=== PATIENT | female | born 1975 | race Caucasian/White ===

== ENCOUNTER → 2017-09-11 | Outpatient (CLI) | payer OTHER ==
--- NOTE | 2017-09-14 10:19 | MM ---
Reason for exam: screening (asymptomatic). Last mammogram was performed 3 years and 6 months ago. History: Took hormonal contraceptives for 18 years beginning at age 14. Physical Findings: A clinical breast exam by your physician is recommended on an annual basis and results should be correlated with mammographic findings. MG Screening Mammo w CAD Bilateral CC and MLO view(s) were taken. Prior study comparison: March 25, 2014, mammogram, performed at [facility]. The breast tissue is heterogeneously dense. This may lower the sensitivity of mammography. Stable intramammary lymph node upper outer quadrant right breast. No significant changes when compared with prior studies. ASSESSMENT: Benign, BI-RAD 2 RECOMMENDATION: Routine screening mammogram of both breasts in 1 year.
== END | disposition home or self-care (01) ==
LOC: RADMAMWWP 09:19
PROVIDERS: ATTEND Family Medicine
DX: Z12.31 Encounter for screening mammogram for malignant neoplasm of breast (principal)
CPT/HCPCS: 77067

== ENCOUNTER → 2019-07-22 | Outpatient (CLI) | payer OTHER ==
--- NOTE | 2019-07-23 10:04 | MM ---
Reason for exam: screening (asymptomatic). Last mammogram was performed 1 year and 10 months ago. History: Took hormonal contraceptives for 18 years beginning at age 14. Physical Findings: A clinical breast exam by your physician is recommended on an annual basis and results should be correlated with mammographic findings. MG Screening Mammo w CAD Bilateral CC and MLO view(s) were taken. Prior study comparison: September 11, 2017, bilateral MG screening mammo w CAD. March 25, 2014, mammogram, performed at [facility]. There are scattered fibroglandular densities. No suspicious abnormality. No significant changes when compared with prior studies. ASSESSMENT: Negative, BI-RAD 1 RECOMMENDATION: Routine screening mammogram of both breasts in 1 year.
== END | disposition home or self-care (01) ==
LOC: RADMAMWWP 12:41
PROVIDERS: ATTEND Physician Assistant Medical
DX: Z12.31 Encounter for screening mammogram for malignant neoplasm of breast (principal)
CPT/HCPCS: 77067

== ENCOUNTER 2020-10-01 16:48 | Observation (INO) | payer OTHER ==
[2020-10-01] MEDS ORDERED: NITROGLYCERIN OINT 1 INCH/GM PACKET TOPICAL STA (17:07)
[2020-10-01] MEDS ORDERED: ASPIRIN 81 MG PO STA (17:07)
--- NOTE | 2020-10-01 17:16 | ED ---
General Adult HPI - General Chief complaint: Recheck/Abnormal Lab/Rx Stated complaint: sent her for heavy chest pressure. Time Seen by Provider: 10/01/20 17:00 Source: patient, RN notes reviewed Mode of arrival: wheelchair Limitations: no limitations - History of Present Illness Initial comments: Patient is a pleasant 45-year-old female presenting to the emergency Department with complaints of chest discomfort. Symptoms have been occurring for months. Patient has pressure in her chest. Symptoms do somewhat increased with deep breaths. Otherwise no dyspnea. No nausea. No diaphoresis. Patient has not noticed worsening symptoms with exertion. Patient did go to her doctor today and was told abnormal EKG and advised come to emergency department. Patient does not have a copy of her EKG. Symptoms have been intermittent, more persistent today. Discomfort is currently rated 2/10. No radiation. - Related Data Home Medications Medication Instructions Recorded Confirmed [id number] [id number] 1 - 2 tab PO Q4HR PRN 10/01/20 10/01/20 [Excedrin] Allergies Allergy/AdvReac Type Severity Reaction Status Date / Time No Known Allergies Allergy Verified 10/01/20 17:28 Review of Systems ROS Statement: Those systems with pertinent positive or pertinent negative responses have been documented in the HPI. ROS Other: All systems not noted in ROS Statement are negative. Constitutional: Denies: fever Eyes: Denies: eye pain ENT: Denies: ear pain Respiratory: Denies: cough, dyspnea Cardiovascular: Reports: chest pain Endocrine: Denies: fatigue Gastrointestinal: Denies: abdominal pain Genitourinary: Denies: dysuria Musculoskeletal: Denies: back pain Skin: Denies: rash Neurological: Denies: weakness Past Medical History Past Medical History: No Reported History History of Any Multi-Drug Resistant Organisms: None Reported Additional Past Surgical History / Comment(s): carpal tunnel, liposuction Past Psychological History: No Psychological Hx Reported Smoking Status: Never smoker Past Alcohol Use History: Occasional Past Drug Use History: None Reported General Exam Limitations: no limitations General appearance: alert, in no apparent distress Head exam: Present: normocephalic Eye exam: Present: normal appearance Neck exam: Present: normal inspection Respiratory exam: Present: normal lung sounds bilaterally. Absent: chest wall tenderness Cardiovascular Exam: Present: regular rate, normal rhythm, normal heart sounds Expanded Peripheral pulses: 2+: Radial (R), Radial (L), Dorsalis Pedis (R), Dorsalis Pedis (L) GI/Abdominal exam: Present: soft. Absent: tenderness Extremities exam: Present: normal inspection. Absent: pedal edema, calf ten derness Neurological exam: Present: alert Psychiatric exam: Present: normal affect, normal mood Skin exam: Present: normal color Course Vital Signs 10/01/20 10/01/20 10/01/20 16:50 17:27 19:31 Temperature 97.7 F 98.2 F Pulse Rate 87 83 80 Respiratory 18 18 18 Rate Blood Pressure 171/107 151/109 133/84 O2 Sat by Pulse 96 97 96 Oximetry EKG Findings - EKG Comments: EKG Findings:: Normal sinus rhythm with a rate of 88. TX 148. QRS 92. QT 376. QTc 454. Normal axis. Normal QRS. No acute ST change. Medical Decision Making - Medical Decision Making Patient reevaluated and updated. Case was discussed in detail with Dr. Grider, covering for hospital call, who will admit. - Lab Data Result diagrams: 10/01/20 17:47 10/01/20 17:47 Lab Results 10/01/20 10/01/20 10/01/20 Range/Units 17:47 17:47 17:47 WBC 9.5 (3.8-10.6) k/uL RBC 5.10 (3.80-5.40) m/uL Hgb 14.6 (11.4-16.0) gm/dL Hct 41.4 (34.0-46.0) % MCV 81.2 (80.0-100.0) fL MCH 28.7 (25.0-35.0) pg MCHC 35.3 (31.0-37.0) g/dL RDW 12.4 (11.5-15.5) % Plt Count 287 (150-450) k/uL MPV 7.3 Neutrophils % 63 % Lymphocytes % 28 % Monocytes % 5 % Eosinophils % 3 % Basophils % 0 % Neutrophils # 6.0 (1.3-7.7) k/uL Lymphocytes # 2.6 (1.0-4.8) k/uL Monocytes # 0.5 (0-1.0) k/uL Eosinophils # 0.2 (0-0.7) k/uL Basophils # 0.0 (0-0.2) k/uL PT 9.9 (9.0-12.0) sec INR 0.9 (<1.2) APTT 22.0 (22.0-30.0) sec D-Dimer 0.51 (<0.60) mg/L FEU Sodium 137 (137-145) mmol/L Potassium 3.7 (3.5-5.1) mmol/L Chloride 107 (98-107) mmol/L Carbon Dioxide 23 (22-30) mmol/L Anion Gap 7 mmol/L BUN 12 (7-17) mg/dL Creatinine 0.75 (0.52-1.04) mg/dL Est GFR (CKD-EPI)AfAm >90 (>60 ml/min/1.73 sqM) Est GFR (CKD-EPI)NonAf >90 (>60 ml/min/1.73 sqM) Glucose 94 (74-99) mg/dL Calcium 9.4 (8.4-10.2) mg/dL Magnesium 1.7 (1.6-2.3) mg/dL Total Bilirubin 0.2 (0.2-1.3) mg/dL AST 18 (14-36) U/L ALT 11 (4-34) U/L Alkaline Phosphatase 59 (38-126) U/L Troponin I (0.000-0.034) ng/mL Total Protein 6.6 (6.3-8.2) g/dL Albumin 3.8 (3.5-5.0) g/dL 10/01/20 Range/Units 17:47 WBC (3.8-10.6) k/uL RBC (3.80-5.40) m/uL Hgb (11.4-16.0) gm/dL Hct (34.0-46.0) % MCV (80.0-100.0) fL MCH (25.0-35.0) pg MCHC (31.0-37.0) g/dL RDW (11.5-15.5) % Plt Count (150-450) k/uL MPV Neutrophils % % Lymphocytes % % Monocytes % % Eosinophils % % Basophils % % Neutrophils # (1.3-7.7) k/uL Lymphocytes # (1.0-4.8) k/uL Monocytes # (0-1.0) k/uL Eosinophils # (0-0.7) k/uL Basophils # (0-0.2) k/uL PT (9.0-12.0) sec INR (<1.2) APTT (22.0-30.0) sec D-Dimer (<0.60) mg/L FEU Sodium (137-145) mmol/L Potassium (3.5-5.1) mmol/L Chloride (98-107) mmol/L Carbon Dioxide (22-30) mmol/L Anion Gap mmol/L BUN (7-17) mg/dL Creatinine (0.52-1.04) mg/dL Est GFR (CKD-EPI)AfAm (>60 ml/min/1.73 sqM) Est GFR (CKD-EPI)NonAf (>60 ml/min/1.73 sqM) Glucose (74-99) mg/dL Calcium (8.4-10.2) mg/dL Magnesium (1.6-2.3) mg/dL Total Bilirubin (0.2-1.3) mg/dL AST (14-36) U/L ALT (4-34) U/L Alkaline Phosphatase (38-126) U/L Troponin I <0.012 (0.000-0.034) ng/mL Total Protein (6.3-8.2) g/dL Albumin (3.5-5.0) g/dL - Radiology Data Radiology results: image reviewed (Chest x-ray reveals no acute process) Disposition Clinical Impression: Chest pain Disposition: ADMITTED IP TO THIS HOSP Is patient prescribed a controlled substance at d/c from ED?: No Referrals: Cassy Shepard, PAC [Primary Care Provider] - 1-2 days Decision Time: 19:33
[2020-10-01 18:13] LABS: Basophils % (A) 0 %; Eosinophils # (A) 0.2 k/uL (0-0.7); Eosinophils % (A) 3 %; HCT 41.4 % (34.0-46.0); HGB 14.6 gm/dL (11.4-16.0); Lymphocytes # (A) 2.6 k/uL (1.0-4.8); Lymphocytes % (A) 28 %; MCH 28.7 pg (25.0-35.0); MCHC 35.3 g/dL (31.0-37.0); MCV 81.2 fL (80.0-100.0); Mean Platelet Volume 7.3; Monocytes # (A) 0.5 k/uL (0-1.0); Monocytes % (A) 5 %; Neutrophils % (A) 63 %; Platelet Count 287 k/uL (150-450); RDW 12.4 % (11.5-15.5); WBC 9.5 k/uL (3.8-10.6)
--- NOTE | 2020-10-01 18:23 | XR ---
EXAMINATION TYPE: XR chest 2V DATE OF EXAM: 10/01/2020 COMPARISON: NONE HISTORY: Chest pressure TECHNIQUE: FINDINGS: Heart and mediastinum are normal. Lungs are clear. Diaphragm is normal. There are chest shalom ds. Bony thorax is intact. IMPRESSION: Normal chest.
[2020-10-01 18:28] LABS: D-Dimer 0.51 mg/L FEU (<0.60); INR 0.9 (<1.2); Prothrombin Time 9.9 sec (9.0-12.0)
[2020-10-01 18:32] LABS: ALT 11 U/L (4-34); AST 18 U/L (14-36); African American GFR (CKD) >90 (>60 ml/min/1.73 sqM); Albumin 3.8 g/dL (3.5-5.0); Alkaline Phosphatase 59 U/L (38-126); Anion Gap 7 mmol/L; Blood Urea Nitrogen 12 mg/dL (7-17); Calcium 9.4 mg/dL (8.4-10.2); Carbon Dioxide 23 mmol/L (22-30); Chloride 107 mmol/L (98-107); Glucose 94 mg/dL (74-99); Magnesium 1.7 mg/dL (1.6-2.3); Non-African American GFR(CKD) >90 (>60 ml/min/1.73 sqM); Potassium 3.7 mmol/L (3.5-5.1); Sodium 137 mmol/L (137-145); Total Bilirubin 0.2 mg/dL (0.2-1.3); Total Protein 6.6 g/dL (6.3-8.2)
[2020-10-01] MEDS ORDERED: NITROGLYCERIN SL TABS 0.4 MG TAB SUBLINGUAL PRN (19:34)
[2020-10-01] MEDS: ACETAMINOPHEN TAB 325 MG TAB PO PRN (22:06)
[2020-10-01] MEDS: NITROGLYCERIN OINT 1 INCH/GM PACKET TOPICAL SCH (23:33)
[2020-10-02 02:15] VITALS: RESP 18
--- NOTE | 2020-10-02 03:16 | P.HPIM ---
History of Present Illness H&P Date: 10/01/20 Chief Complaint: chest pain 45 year old female with no significant past medical history Patient comes in today for evaluation of abnormal EKG and chest pain she was sent in from her primary care physician office. She reports that she's been experiencing off-and-on chest pain for the past month not related to activity. She works in the post office. She denies any unusual physical activity recently denies any trauma. Today she went to her doctor's office for evaluation was found to have abnormal EKG for which she was sent in here upon arrival she was reporting some chest discomfort is nonradiating central chest discomfort increased with taking deep breath and coughing. Not associated with activity. Denies any associated nausea vomiting diaphoresis palpitation or shortness of breath. She described the pain as pressure about 5 out of 10 in severity In the ED blood work was unremarkable, troponin negative, vital signs stable, EKG in the ED was normal sinus rhythm, chest x-ray was unremarkable Patient denies any smoking, history of premature CAD, denies any drug abuse or alcohol abuse Review of Systems Pertinent positives as noted in HPI. All other systems were reviewed and are negative Past Medical History Past Medical History: No Reported History History of Any Multi-Drug Resistant Organisms: None Reported Additional Past Surgical History / Comment(s): carpal tunnel, liposuction Past Psychological History: No Psychological Hx Reported Smoking Status: Never smoker Past Alcohol Use History: Occasional Past Drug Use History: None Reported - Past Family History family Family Medical History: No Reported History Medications and Allergies Home Medications Medication Instructions Recorded Confirmed Type Rnlvoqm-Tzxb-Viww [id number] 1 - 2 tab PO Q4HR PRN 10/01/20 10/01/20 History [Excedrin] Allergies Allergy/AdvReac Type Severity Reaction Status Date / Time No Known Allergies Allergy Verified 10/01/20 17:28 Physical Exam Vitals: Vital Signs Temp Pulse Resp BP Pulse Ox 10/01/20 19:31 98.2 F 80 18 133/84 96 10/01/20 17:27 83 18 151/109 97 10/01/20 16:50 97.7 F 87 18 171/107 96 Intake and Output 10/01/20 10/01/20 10/01/20 06:59 14:59 22:59 Other: Weight 95.254 kg Constitutional: No acute distress, conversant, pleasant Eyes: Anicteric sclerae, moist conjunctiva, Pupils equal round reactive to light ENMT: NC/AT Oropharynx clear, no erythema, or exudates Neck: Supple, FROM, no masses, or JVD No carotid bruits No thyromegaly Lungs: Clear to auscultation Clear to percussion Normal respiratory effort, no accessory muscle use Cardiovascular: Heart regular in rate and rhythm, No murmurs, gallops, or rubs No peripheral edema Abdominal: Soft Nontender, no guarding, rebound or rigidity Abdomen moving with respiration Normoactive bowel sounds No hepatomegaly, No splenomegaly No palpable mass No abdominal wall hernia noted Skin: Normal temperature, tone, texture, turgor No induration No subcutaneous nodules No rash, lesions No ulcers Extremities: No digital cyanosis No clubbing Pedal pulses intact and symmetrical Radial pulses intact and symmetrical No calf tenderness Psychiatric: Alert and oriented to person, place and time Appropriate affect fair judgement Neuro Muscles Strength 5/5 in all 4 extremities Sensation to light touch grossly present throughout Cranial nerves II-XII grossly intact No focal sensory deficits Lymphatics: no palpable cervical or supraclavicular , or inguinal lymph nodes Results CBC & Chem 7: 10/01/20 17:47 10/01/20 17:47 Assessment and Plan Assessment: Atypical chest pain, rule out ACS Cardiology consultative Neurological Physiotherapist Trend troponins Nitro as needed Aspirin Statin Check A1c Check lipid profile Monitor vital signs EKG normal sinus rhythm Chest x-ray no acute pathology Obesity Lifestyle modification to achieve weight loss CODE STATUS: Full code DVT prophylaxis: Heparin subcu 3 times a day Discussed with: Patient, ER, RN Anticipated length of stay < than [address]: Home A total of 65 minutes was spent on the care of this complex patient more than 50% of the time was spent in counseling and care coordination.
[2020-10-02] MEDS: ACETAMINOPHEN TAB 325 MG TAB PO PRN (04:25)
[2020-10-02] MEDS: NITROGLYCERIN OINT 1 INCH/GM PACKET TOPICAL SCH (04:28)
[2020-10-02 07:41] VITALS: BP 128/80; PULSE 82; TEMP 98.6
[2020-10-02] MEDS ORDERED: HEPARIN SODIUM,PORCINE/PF 5,000 UNIT/0.5 ML SYRINGE SQ SCH (08:00)
[2020-10-02] MEDS ORDERED: ASPIRIN 325 MG TAB PO SCH (09:00)
[2020-10-02 09:14] LABS: Basophils # (A) 0.02 X 10*3/uL (0.00-0.10); Basophils % (A) 0.2 %; Eosinophils # (A) 0.18 X 10*3/uL (0.04-0.35); Eosinophils % (A) 1.8 %; HCT 40.1 % (37.2-46.3); HGB 13.8 g/dL (12.0-15.0); Lymphocytes # (A) 1.53 X 10*3/uL (0.90-5.00); Lymphocytes % (A) 15.7 %; MCH 28.6 pg (27.0-32.0); MCHC 34.4 g/dL (32.0-37.0); Mean Platelet Volume 10.6 fL (9.5-12.2); Monocytes # (A) 0.54 X 10*3/uL (0.20-1.00); Monocytes % (A) 5.5 %; Neutrophils # (A) 7.44 X 10*3/uL (1.80-7.70); Neutrophils % (A) 76.6 %; Platelet Count 288 X 10*3/uL (140-440); RBC 4.83 X 10*6/uL (4.10-5.20); RDW 12.6 % (11.5-14.5); WBC 9.73 X 10*3/uL (4.50-10.00)
--- NOTE | 2020-10-02 09:40 | P.DS ---
Providers Date of admission: 10/01/20 19:34 Expected date of discharge: 10/02/20 Attending physician: Dinorah Leon MD Consults: 10/01/20 19:34 Consult Physician Urgent Consulting Provider: López Chaudhry Consult Reason/Comments: cp Do you want consulting provider notified?: Yes Primary care physician: Cassy Shepard [facility] Hospital Course: This is a 45-year-old female with no significant past medical history the emergency room chest pain. Patient was evaluated in the ER and placed on observation for further evaluation. Twelve-lead EKG in the ER showed no acute ischemic changes. Serial troponin remained negative. ACS ruled out. Patient was seen and evaluated by cardiology. She is scheduled for a cardiac stress test on October 13. Chest x-ray was unremarkable. She was cleared by cardiology for discharge. Fasting lipid profile is still pending. Patient will follow-up with her PCP for fasting lipid profile results. She'll be discharged home in a stable condition. She was chest pain-free at the time of my evaluation. Patient Condition at Discharge: Stable Plan - Discharge Summary Discharge Rx Participant: Yes New Discharge Prescriptions: Continue Gaijzzm-Oxdo-Kgws [id number] [Excedrin] 1 - 2 tab PO Q4HR PRN PRN Reason: Headache Discharge Medication List Jtsjhoj-Xzsf-Yyuv [id number] [Excedrin] 1 - 2 tab PO Q4HR PRN 10/01/20 [History] Follow up Appointment(s)/Referral(s): Cassy Shepard PAC [Primary Care Provider] - 1-2 days Discharge Disposition: HOME SELF-CARE
[2020-10-02 10:08] LABS: African American GFR (CKD) 125.8 (60.0-200.0); Albumin 3.9 g/dL (3.80-4.90); Albumin/Globulin Ratio 1.63 (1.60-3.17); Anion Gap 8.1 mmol/L (4.00-12.00); BUN/Creat Ratio 21.67 Ratio (12.00-20.00); Calcium 9.2 mg/dL (8.7-10.3); Carbon Dioxide 24.9 mmol/L (21.6-31.8); Chol/HDL Ratio 3.24; Globulin 2.4 g/dL (1.6-3.3); LDL Cholesterol,Calculated 92.2 mg/dL (0.0-131.0); Non-African American GFR(CKD) 108.5 (60.0-200.0); Potassium 4.3 mmol/L (3.5-5.5); Total Bilirubin 0.3 mg/dL (0.3-1.2); Total Protein 6.3 g/dL (6.2-8.2); VLDL Calculation 21.8 mg/dL (5.00-40.00)
--- NOTE | 2020-10-02 12:56 | CONS ---
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 She came into the hospital with discomfort in the chest, which seems to be very superficial musculoskeletal and seemed to occur in a random fashion, not necessarily with physical activity. She has been having this on and off for about a week. She went and saw her primary care physician or nurse practitioner who performed an EKG and suggests rate was abnormal and to go to the hospital. EKG is indeed normal. Her pain is atypical. Her troponins are normal. She is resting comfortably without symptoms. There is some amount of anxiety. However, once she was told the EKG was abnormal. Since arrival to the hospital, she has been pain-free. She is ambulating without symptoms. At the time of my evaluation, she is virtually asymptomatic. PAST MEDICAL HISTORY: Unremarkable other than carpal tunnel syndrome surgery and liposuction surgery more than 10 years ago. CORONARY RISK FACTORS: Patient does not have hypertension, diabetes, family history of CAD, or any other significant risk factors. She is not a smoker. MEDICATIONS: None. ALLERGIES: None. PHYSICAL EXAMINATION: On examination, blood pressure is 118/70, pulse rate is 78. HEENT unremarkable. Fundus was not examined by me. Neck is supple. No JVD. I do not hear a carotid bruit. There is no thyromegaly. Heart exam reveals S1, S2 heard normally. No rub, murmur or gallop. Lungs are clear. Abdomen is soft, nontender. Lower extremities reveal normal pulses. No edema. Central nervous system is normal. EKG revealed sinus mechanism, no acute changes. LABORATORY DATA: Reveals no significant abnormalities. Troponins are normal. IMPRESSION: 1. Atypical chest pain. 2. No evidence of any significant risk factors. RECOMMENDATIONS: I am recommending that she can be discharged. She is a fairly active lady. I will do a stress echo and echo as an outpatient. I reassured her that she can be discharged, but advised her to follow up in my office for stress echo within the next 2 weeks. To call for questions. The patient can be discharged. GEORGIANA / EDMOND: [id number] /
[2020-10-02 14:45] LABS: Hemoglobin A1C 4.8 % (4.0-6.0)
[2020-10-02] MEDS ORDERED: ATORVASTATIN 20 MG TAB PO SCH (21:00)
== END 2020-10-02 10:57 | disposition home or self-care (01) ==
LOC: EC 16:48 → 6NMEDSUR 19:34
PROVIDERS: ADMIT Internal Medicine; ATTEND Internal Medicine
DX: R07.89 Other chest pain (principal); E66.9 Obesity, unspecified; R05 Cough; Z20.822 Contact with and (suspected) exposure to COVID-19; F41.9 Anxiety disorder, unspecified; G56.00 Carpal tunnel syndrome, unspecified upper limb; Z98.890 Other specified postprocedural states
CPT/HCPCS: 96372; 99285; 36415; 93005; 85379; 80061; 80053 ×2; 84443; 83735; 84484; 85025 ×2; 85610; 85730; 83036; 87635; 71046; G0378 ×2; J1644

== ENCOUNTER → 2020-12-13 | Outpatient (CLI) | payer OTHER ==
--- NOTE | 2020-12-15 09:48 | MM ---
Reason for exam: screening (asymptomatic). Last mammogram was performed 1 year and 5 months ago. History: Took hormonal contraceptives for 18 years beginning at age 14. Physical Findings: A clinical breast exam by your physician is recommended on an annual basis and results should be correlated with mammographic findings. MG Screening Mammo w CAD Bilateral CC and MLO view(s) were taken. Prior study comparison: July 22, 2019, bilateral MG screening mammo w CAD. September 11, 2017, bilateral MG screening mammo w CAD. There is chronic nodularity in the right breast. No significant changes when compared with prior studies. ASSESSMENT: Benign, BI-RAD 2 RECOMMENDATION: Routine screening mammogram of both breasts in 1 year.
== END | disposition home or self-care (01) ==
LOC: RADMAMWWP 15:07
DX: Z12.31 Encounter for screening mammogram for malignant neoplasm of breast (principal)
CPT/HCPCS: 77067

== ENCOUNTER → 2021-12-06 | Outpatient (CLI) | payer OTHER ==
--- NOTE | 2021-12-07 09:24 | US ---
EXAMINATION TYPE: US pelvic complete DATE OF EXAM: 12/06/2021 COMPARISON: None CLINICAL HISTORY: 46-year-old female N93.8 ABD VAGINAL BLEEDING. Pt states heavy, abnormal menses TECHNIQUE: Transabdominal sonographic images of the pelvis were acquired. Date of LMP: Pt states LMP just ended, but she bled for 8+ days FINDINGS: EXAM MEASUREMENTS: Uterus: 12.3 x 6.0 x 7.5 cm cm Endometrial Stripe: 1.2 cm Right Ovary: 4.2 x 3.6 x 2.7 cm Left Ovary: 3.8 x 4.0 x 3.1 cm 1. Uterus: Anteverted. Myometrium is heterogeneous, uterus somewhat bulky in appearance 2. Endometrium: Thickened for recent menses 3. Right Ovary: Cyst= 2.6 x 1.7 x 2.9 cm 4. Left Ovary: Cyst= 2.5 x 2.2 x 2.2 cm 5. Bilateral Adnexa: wnl 6. Posterior cul-de-sac: wnl IMPRESSION: 1. Somewhat bulky appearance to the uterus. This could reflect underlying diffuse small fibroid bernstein e. Consider more detailed assessment with transvaginal exam or female pelvic MRI. 2. Endometrial stripe thickened at 1.2 cm. This should generally correspond to the secretory phase of the menstrual cycle but the patient reports completing menses just recently. Consider reassessing st ripe thickness in 2-3 months. 3. A dominant follicle/functional cyst on either side measuring up to 2.9 cm. These can also be reass essed at follow-up.
== END | disposition home or self-care (01) ==
LOC: RADUSWWP 16:24
DX: N93.8 Other specified abnormal uterine and vaginal bleeding (principal)
CPT/HCPCS: 76856

== ENCOUNTER → 2023-02-22 | Outpatient (CLI) | payer OTHER ==
--- NOTE | 2023-02-26 01:37 | MM ---
Reason for Exam: Screening (asymptomatic). Last mammogram was performed 2 year(s) and 2 month(s) ago. Patient History: Menarche at age 11. First Full-Term at age 23. Premenopausal. Hormonal Contraceptives for 18 years from age 14 until age 32. Risk Values: Ira 5 year model risk: 1.0%. NCI Lifetime model risk: 10.0%. Prior Study Comparison: 09/11/2017 Bilateral Screening Mammogram, [facility]. 07/22/2019 Bilateral Screening Mammogram, [facility]. 12/13/2020 Bilateral Screening Mammogram, [facility]. Tissue Density: There are scattered fibroglandular densities. Findings: Analyzed By CAD. Chronic nodularity on the right. There is no suspicious group of microcalcifications or new suspicious mass in either breast. Overall Assessment: Benign, BI-RAD 2 Management: Screening Mammogram of both breasts in 1 year. . Patient should continue monthly self-breast exams. A clinical breast exam by your physician is recommended on an annual basis. This exam should not preclude additional follow-up of suspicious palpable abnormalities. Note on Ira scores and lifetime risk: 1. A Ira score greater than 3% is considered moderate risk. If this is the case, consider specialist referral to assess eligibility for a risk reducing agent. 2. If overall lifetime risk for the development of breast cancer is 20% or higher, the patient may qualify for future screening with alternating mammogram and breast MRI. Electronically signed and approved by: Phuong Funez M.D. Radiologist
== END | disposition home or self-care (01) ==
LOC: RADMAMWWP 13:27
DX: Z12.31 Encounter for screening mammogram for malignant neoplasm of breast (principal)
CPT/HCPCS: 77067

== ENCOUNTER 2023-08-01 11:55 | Day surgery (SDC) | payer OTHER ==
--- NOTE | 2023-07-31 12:54 | P.HPOR ---
History of Present Illness H&P Date: 07/31/23 Subjective: This is a 48 year old female that presents today for initial evaluation regarding a left index finger hook nail deformity that developed after an injury approximately 2 years ago. She states she was at home and broke up a fight between her 2 dogs when the tip of the index finger was bitten resulting in an amputation at the level of the distal phalanx. She was seen at [facility] at the time of her injury and a revision amputation was performed in the emerge ncy department. She developed a painful and symptomatic nail deformity over the course of several months after her injury. She works as a mail delivery supervisor and notes that the tip of the finger is painful. She has difficulty trimming the nail due to the 90 angle that the nailbed and plate have healed and often finds it digs into her skin. Physical Examination: LUE: AIN/PIN/Radial/Ulnar/Median motor intact. Radial/Ulnar/Median SILT. 2+/4 Radial/Ulnar pulses palpated. 5/5 APB, 5/5 FDI. Index finger hook nail deformity present. FDP intact against resistance. Imaging: X-Rays of the left index finger 2v taken in office today demonstrate a tip amputation through the level of the distal phalanx base. 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 We discussed several different surgical treatment options including revision amputation through the level of the DIP joint. Another alternative we discussed was removing the remaining nail plate, nail bed and performing a germinal matrix ablation and then performing a hypothenar full-thickness skin graft to cover the defect. We discussed this would only be performed if there was adequate padding able to cover the distal tip of the remaining stump of the distal phalanx and that this would be an intra-operative decision deciding which procedure would give the best functional result. She is scheduled for a left index finger revision amputation with local advancement flap vs. full thickness hypothenar pinch skin graft. Risks and benefits of surgery including bleeding, infection, damage to surrounding tissue, need for further surgery, residual numbness were discussed and the patient wished to go forward with surgery. The patient was agreeable with this plan. CC: Cassy Jim DO Orthopedic Hand/Upper Extremity Surgeon Past Medical History Past Medical History: No Reported History Additional Past Medical History / Comment(s): left shoulder pain, old dog bite to left index finger with hook nail. History of Any Multi-Drug Resistant Organisms: None Reported Past Surgical History: Uterine Ablation Additional Past Surgical History / Comment(s): hansel carpal tunnel, liposuction, ablation , left index finger surgery from dog bite Past Anesthesia/Blood Transfusion Reactions: No Reported Reaction Smoking Status: Never smoker - Past Family History Father Family Medical History: Cancer Additional Family Medical History / Comment(s): prostate Mother Family Medical History: COPD family Family Medical History: No Reported History Medications and Allergies Home Medications Medication Instructions Recorded Confirmed Type Tzjnuiq-Tmdr-Ibaw [id number] 1 - 2 tab PO Q4HR PRN 10/01/20 07/27/23 History [Excedrin] Allergies Allergy/AdvReac Type Severity Reaction Status Date / Time No Known Allergies Allergy Verified 07/27/23 12:50 Physical Examination Osteopathic Statement: *. No significant issues noted on an osteopathic structural exam other than those noted in the History and Physical/Consult.
[~2023-08-01 11:55] MED LIST: HYDROmorphone 0.5 MG/0.5 ML SYRINGE IVP PRN; MIDAZOLAM 2 MG/2 ML VIAL IV PRN
[2023-08-01] MEDS: LACTATED RINGERS 1,000 ML IV SCH (12:52)
[2023-08-01] MEDS: DEXAMETHASONE SOD PHOSPHATE 4 MG/ML 1 ML VIAL IV ONE (12:52)
[2023-08-01] MEDS: ONDANSETRON 4 MG/2 ML VIAL ONE (12:53)
[2023-08-01 13:24] VITALS: TEMP 97
[2023-08-01] MEDS ORDERED: LIDOCAINE 1% INJ 10MG/ML (20 ML MDV) ONE (13:51)
[2023-08-01] MEDS ORDERED: PROPOFOL 10 MG/ML 20 ML VIAL IV ONE (13:51)
[2023-08-01] MEDS ORDERED: fentaNYL (PF) 50 MCG/ML 2 ML AMP ONE (13:51)
[2023-08-01] MEDS ORDERED: MIDAZOLAM 2 MG/2 ML VIAL ONE (13:51)
[2023-08-01] MEDS: BUPIVACAINE (PF) 0.5% 30 ML VIAL SQ ONE ×2 (14:00)
[2023-08-01] MEDS: LIDOCAINE 2% INJ 20 MG/ML SQ ONE ×2 (14:00)
[2023-08-01] MEDS: BACITRACIN OINT 1 EACH PACKET TOPICAL ONE (14:10)
--- NOTE | 2023-08-01 14:39 | P.OP ---
Date of Procedure: 08/01/23 Preoperative Diagnosis: Left index finger hook nail deformity Postoperative Diagnosis: Left index finger hook nail deformity Procedure(s) Performed: Left index finger revision amputation Anesthesia: MAC Surgeon: Miles Jim Mixing Supervisor #1: Jose Dash Estimated Blood Loss (ml): 0 Pathology: none sent Condition: stable Disposition: PACU Description of Procedure: This is a 48 year old female who presents today for a left index finger revision amputation due to severe hook nail deformity after a dog bite several years prior. Risks and benefits of surgery were discussed with the patient including bleeding, damage to surrounding tissue, infection, need for further surgery as well as risks of anesthesia including pulmonary embolism and even and the patient wished to proceed with surgical intervention. The patient was seen in the pre-operative area by myself. Consent and H&P were completed and updated. The correct extremity was marked in the pre-operative area by myself and all other questions were answered. Operative Narrative: The patient was brought to the operating room by the department of anesthesia. They remained on the portable stretcher and a rolling hand table was brought to the side of the operative extremity. Pre-operative time out was performed indicating the correct patient, procedure and laterality. All in the room agreed. Pre-operative antibiotics were given prior to skin incision. The patient was then drifted off to sleep by the department of anesthesia. A nonsterile tourniquet was then applied to the operative extremity and the left upper extremity was then prepped and draped in normal sterile fashion. The operative extremity was the exsanguinated with an esmarch bandage and the tourniquet was inflated to 250mmHg. 15 blade scalpel was utlized to make a fishmouth incision over the tip of the index finger. The germinal matrix portion of the nailbed was identified and ablated with bovie cautery. The remaining distal stump of the distal phalanx was excised with rongeur and a scalpel. The FDP tendon was then attached to a flap of the remnant of the volar plate with interrupted 4-0 monocryl suture. Branches of the radial and ulnar digital nerves were identified and sharply transected under tension. The wound was then closed with 4-0 chromic gut sutures in a tension free manner. Sterile dressing was applied to the finger with adaptic, bacitracin and 4x4's. Tourniquet was let down and the hand had immediate perfusion. The patient was then woken by the department of anesthesia and transferred to PACU in stable condition. Jose Dash was present to assist in arm manipulation, retraction and amputation of the digit. Miles Jim D.O. Orthopedic Hand/Upper Extremity Surgeon
[2023-08-01 15:16] VITALS: BP 142/94; PULSE 80; RESP 17
== END 2023-08-01 15:35 | disposition home or self-care (01) ==
LOC: OR 11:55
PROVIDERS: ATTEND Orthopaedic Surgery Hand Surgery
DX: L60.8 Other nail disorders (principal); Z98.890 Other specified postprocedural states; Z80.42 Family history of malignant neoplasm of prostate; Z84.1 Family history of disorders of kidney and ureter; Z79.82 Long term (current) use of aspirin; Z79.899 Other long term (current) drug therapy
CPT/HCPCS: 81025; 26951; J2001 ×2; J2250; J1100; J0690; J2405; J3010; J2704; J0665

== ENCOUNTER → 2024-07-11 | Outpatient (CLI) | payer OTHER ==
--- NOTE | 2024-07-11 22:01 | MR ---
EXAMINATION TYPE: MR shoulder LT wo con DATE OF EXAM: 07/11/2024 9:36 PM COMPARISON: None. CLINICAL INDICATION: Female, 48 years old with history of M25.512 PAIN IN LEFT SHOULDER, Left shoulde r pain and decreased range of motion. TECHNIQUE: Multiplanar multispin echo imaging of the left shoulder was performed. FINDINGS: Rotator cuff : There is thickening and heterogeneity of the supraspinatus tendon with small intrasubs tance and undersurface tear seen. No evidence for full-thickness tear. Remaining constituents of the rotator cuff are intact. Bursa: No bursal effusion or thickening is seen. Musculature: There is no muscular tear, contusion, or atrophy. Acromioclavicular joint : There are mild degenerative changes of the acromioclavicular joint. Subacro mial spurring results in moderate impingement. Osseous structures : There are no fractures or regions of abnormal bone marrow signal intensity. Long biceps tendon : The biceps tendon is normally situated within the bicipital groove. No complete or partial biceps tendon tear is present. Glenohumeral Joint fluid : Irregularity inferior medial glenoid labrum with surrounding fluid could r eflect glenoid labral tear. Cartilage and Bone : No focal hyaline cartilage defects are noted. No Hill-Sachs, reverse Hill-Sachs, or bony Bankart lesions are seen. Labrum : Irregularity inferior medial glenoid labrum with surrounding fluid could reflect glenoid lab ral tear. OTHER FINDINGS : none IMPRESSION: 1. Chronic tendinopathy supraspinatus tendon with small intrasubstance and undersurface partial tears without full-thickness tear. 2. I cannot exclude glenoid labral tear as noted above. [facility], , 07/11/2024 9:58 PM
== END | disposition home or self-care (01) ==
LOC: RADMRIMAIN 21:30
PROVIDERS: ATTEND Family Medicine
DX: M75.112 Incomplete rotator cuff tear or rupture of left shoulder, not specified as traumatic (principal)

== ENCOUNTER → 2024-07-17 | Outpatient (CLI) | payer OTHER ==
--- NOTE | 2024-07-17 10:24 | MM ---
Reason for Exam: Screening (asymptomatic). Last mammogram was performed 1 year(s) and 5 month(s) ago. Patient History: Menarche at age 11. First Full-Term at age 23. Premenopausal. Hormonal Contraceptives for 18 years from age 14 until age 32. Risk Values: Ira 5 year model risk: 1.1%. NCI Lifetime model risk: 9.7%. Prior Study Comparison: 07/22/2019 Bilateral Screening Mammogram, [facility]. 12/13/2020 Bilateral Screening Mammogram, [facility]. 02/22/2023 Bilateral MG screening mammo w CAD, [facility]. Tissue Density: The breasts are almost entirely fatty. Findings: Analyzed By CAD. There is no suspicious group of microcalcifications or new suspicious mass in either breast. Overall Assessment: Negative, BI-RAD 1 Management: Screening Mammogram of both breasts in 1 year. . Patient should continue monthly self-breast exams. A clinical breast exam by your physician is recommended on an annual basis. This exam should not preclude additional follow-up of suspicious palpable abnormalities. Note on Ira scores and lifetime risk: 1. A Ira score greater than 3% is considered moderate risk. If this is the case, consider specialist referral to assess eligibility for a risk reducing agent. 2. If overall lifetime risk for the development of breast cancer is 20% or higher, the patient may qualify for future screening with alternating mammogram and breast MRI. [facility], , 07/17/2024 10:22 AM. Electronically signed and approved by: Adolfo Car M.D. Radiologis
== END | disposition home or self-care (01) ==
LOC: RADMAMWWP 09:55
PROVIDERS: ATTEND Family Medicine
DX: Z12.31 Encounter for screening mammogram for malignant neoplasm of breast (principal); R92.313 Mammographic fatty tissue density, bilateral breasts; Z92.0 Personal history of contraception
CPT/HCPCS: 77067